=== PATIENT | male | born 1985 ===

== ENCOUNTER 2025-01-21 14:27 | Emergency (ER) | payer MEDICAID ==
[~2025-01-21] VITALS: Ht 177.8 cm; Wt 85.1 kg
[2025-01-21 14:40] VITALS: BP 137/92; PULSE 116; RESP 18; O2SAT 99
--- NOTE | 2025-01-21 16:11 | Physician Documentation ---
History of Present Illness ~ Chief Complaint: Mouth Pain Stated Complaint: LIP PAIN Time Seen by MD: 15:58 HPI Patient is seen today with complaints of skin infection in his lower lip that started just yesterday. Patient states he picked at as it on his lower lip in tried some warm compress and then it blew up last night in his very swollen and painful today. He has no other concern or complaint at this time. Medication Reconciliation Allergies: Coded Allergies: sulfamethoxazole (Verified Allergy, Unknown, 01/21/25) trimethoprim (Verified Allergy, Unknown, 01/21/25) Review of Systems Constitutional: Denies: chills, fever, weakness Eyes: Denies: pain, blurred vision ENT: Denies: ear pain, nose pain, throat pain, mouth pain Respiratory: Denies: cough, shortness of breath Cardiovascular: Denies: chest pain, palpitations Gastrointestinal: Denies: abdominal pain, nausea, vomiting Genitourinary: Denies: burning, dysuria Male Genitalia: Denies: penile discharge, testicular pain Neurological: Denies: headache, dizziness Musculoskeletal: Denies: pain, swelling Integumentary: Denies: rash, lesions Allergic/Immunologic: Denies: hives, itching Hematologic/Lymphatic: Denies: no symptoms reported Psychiatric: Denies: depression, anxiety Physical Exam Vital Signs: Temperature: 97.8, Source: Temporal, Heart Rate: 116, Respiratory Rate: 18, BP: 137/92, Pulse Oximetry: 99, Weight: 85.100 Physical Exam General: Awake and Alert, no acute distress. HEENT: Patient on exam has significant induration and erythema and swelling of his lower lip. Conjunctiva pink, Sclera clear, Mucus Membranes moist. Neck: Supple without masses and tenderness. Resp: Unlabored. Lungs clear to auscultation bilaterally. Heart: Regular Rate and rhythm, normal S1 and S2 without murmur, rub or gallop. Extremities: No cyanosis,clubbing or edema. Skin: Warm and Dry. Progress Results/Orders Results/Orders Vital Signs 01/21/25 14:40 Temp 97.8 Pulse 116 Resp 18 B/P (MAP) 137/92 Pulse Ox 99 Medical Decision Making Findings Patient is seen today with complaints of skin infection in his lower lip that started just yesterday. Patient states he picked at as it on his lower lip in t ried some warm compress and then it blew up last night in his very swollen and painful today. He has no other concern or complaint at this time. Patient was given dose of doxycycline 100 mg in the ED today. Prescription of doxycycline sent to patient's pharmacy to start taking one tablet twice a day by mouth for 10 days. Patient will follow up with primary care in 2-3 days if no better as needed sooner. Return to ED with any worsening, concerning or changing symptoms. Departure Disposition: HOME / SELF CARE / HOMELESS Impression: Primary Impression: Cellulitis and abscess of face Condition: Stable Additional Instructions: Patient was given dose of doxycycline 100 mg in the ED today. Prescription of doxycycline sent to patient's pharmacy to start taking one tablet twice a day by mouth for 10 days. Patient will follow up with primary care in 2-3 days if no better as needed sooner. Return to ED with any worsening, concerning or changing symptoms. Referrals: NO PRIMARY CARE PROVIDER (PCP) Prescriptions Doxycycline Hyclate (Doxycycline Hyclate) 100 Mg Capsule 1 CAP PO Q12H for 10 Days, #20 CAP Prov: CARYL IVAN 01/21/25 Signature Scribe Signature: No scribe Attestation: No scribe CARYL IVAN PAC Jan 21, 2025 16:11
[2025-01-21] MEDS ORDERED: DOXY-224 PO (16:14)
[2025-01-21] MEDS: DOXYCYCLINE 100MG CAPSULE PO STA (16:29)
[2025-01-21 16:33] VITALS: TEMP 97.8
== END 2025-01-21 16:37 | disposition home or self-care (01) ==
LOC: ER 14:28
DX: L02.01 Cutaneous abscess of face (principal); L03.211 Cellulitis of face; Z88.1 Allergy status to other antibiotic agents; Z88.2 Allergy status to sulfonamides
CPT/HCPCS: 99283